=== PATIENT | male | born 1980 | race Two or more races ===

== ENCOUNTER 2018-12-26 14:38 | Emergency (ER) ==
[~2018-12-26] VITALS: Ht 185.4 cm; Wt 90.0 kg
[2018-12-26 14:59] VITALS: BP 168/98
[2018-12-26] MEDS ORDERED: KETOROLAC TROMETHAMINE 30 MG/ML VIAL IM ONE (15:30)
[2018-12-26] MEDS ORDERED: PERTUSS(ACELL),DIPH,TET VAC/PF 0.5 ML VIAL IM ONE (15:30)
== END 2018-12-26 16:04 | disposition left against medical advice (07) ==
LOC: EMS 14:39
DX: S00.412A Abrasion of left ear, initial encounter (principal); S00.411A Abrasion of right ear, initial encounter; S80.812A Abrasion, left lower leg, initial encounter; S80.811A Abrasion, right lower leg, initial encounter; S20.419A Abrasion of unspecified back wall of thorax, initial encounter; F22 Delusional disorders; F17.210 Nicotine dependence, cigarettes, uncomplicated; W18.39XA Other fall on same level, initial encounter; Y93.89 Activity, other specified; Y92.89 Other specified places as the place of occurrence of the external cause; Y99.8 Other external cause status
CPT/HCPCS: 93005